=== PATIENT | female | born 2000 | race Caucasian/White ===

== ENCOUNTER 2019-02-01 08:06 | Observation (INO) ==
[2019-02-01] MEDS ORDERED: SODIUM CHLORIDE 0.9% 1000ML 1,000 ML IV ONE (08:42)
[2019-02-01] MEDS ORDERED: METOCLOPRAMIDE HCL INJ 5 MG/ML 2 ML VIAL IV STA (08:42)
[2019-02-01 08:59] LABS: Basophils # (auto) 0.04 K/uL (0-0.2); Basophils % (auto) 0.2 %; Eosinophils # (auto) 0.04 K/uL (0-0.5); Eosinophils % (auto) 0.2 %; Hematocrit (blood only) 39.1 % (37-47); Hemoglobin 13.9 g/dL (12.0-16.0); Immature Granulocytes # (auto) 0.06 K/uL (0.00-0.02); Immature Granulocytes % (auto) 0.3 %; Lymphocytes # (auto) 2.47 K/uL (1.2-3.4); Lymphocytes % (auto) 13.8 %; Mean Corpuscular Hemoglobin 30.3 pg (25-34); Mean Corpuscular Hgb Conc 35.5 g/dL (32-36); Mean Corpuscular Volume 85.4 fL (80-100); Mean Platelet Volume 11.2 fL (7.4-10.4); Monocytes # (auto) 1.18 K/uL (0.11-0.59); Monocytes % (auto) 6.6 %; Neutrophils # (auto) 14.09 K/uL (1.4-6.5); Neutrophils % (auto) 78.9 %; Platelet Count 318 K/uL (130-400); RDW Coefficient of Variation 13.6 % (11.5-14.5); RDW Standard Deviation 42.3 fL (36.4-46.3); Red Blood Count 4.58 M/uL (4.2-5.4); White Blood Count 17.88 K/uL (4.8-10.8)
[2019-02-01 09:06] LABS: Albumin Level 4.4 gm/dl (3.4-5.0); BUN Creatinine Ratio 10.1 (10-20); Calcium 9.6 mg/dl (8.5-10.1); Creatinine Clr Calc Pharmacy 82.3 ml/min; Est GFR (African American) 108.1; Est GFR (Non-African American) 93.3; Potassium 3.4 mmol/L (3.5-5.1)
[2019-02-01 09:09] LABS: Albumin Globulin Ratio 1.2 (0.9-2); Bilirubin,Total 0.6 mg/dl (0.2-1); Globulin 3.6 gm/dl (2.5-4.0)
[2019-02-01] MEDS ORDERED: DiphenhydrAMINE HCL 50 MG/ML VIAL IV STA ×2 (10:03→13:02)
[2019-02-01] MEDS ORDERED: ONDANSETRON INJ 2 MG/ML 2 ML VIAL IV STA (10:03)
[2019-02-01] MEDS ORDERED: ACETAMINOPHEN 1,000 MG/100 ML VIAL IV STA (10:06)
[2019-02-01 11:22] LABS: Appearance Urine Clear (Clear); Bilirubin Urine Negative (Negative); Blood Urine Negative (Negative); Color Urine Yellow; Glucose Urine UA Negative (Negative); Leukocyte Esterase Urine Negative (Negative); Nitrite Urine Negative (Negative); Protein Urine Negative (Negative); Specific Gravity Urine 1.021 (1.000-1.030); Urobilinogen Urine Negative (Negative)
--- NOTE | 2019-02-01 11:27 | Ultrasound Report ---
US OB <= 14 weeks fetus, US OB transvaginal CLINICAL HISTORY: 18 years-old Female presenting with Abd pain, N/V, elev WBC, last menstrual period 12/30/2018, 4 weeks 5 days , left lower quadrant pain. TECHNIQUE: Real-time grayscale and M-mode ultrasound imaging of the pelvis was performed first using a transabdominal probe and subsequently transvaginal for better characterization for a first trimeste r evaluation. Color and spectral Doppler ultrasound imaging of the adnexa was also performed. COMPARISON: CT from 06/13/2018. FINDINGS: TRANSABDOMINAL: Transabdominal imaging was performed for a minimally invasive evaluation and to ensur e visualization of global pelvic findings. Bladder: Normal. Uterus: The endometrial cavity contains a fluid collection near the fundus. This may represent a gest ational sac. Normal echogenicity and echotexture of the myometrium. Uterine size: 7.6 x 3.4 x 4.6 cm. Orientation: Anteverted uterus. Cervix: Grossly closed. Right adnexa: Right ovary: Not visualized. Left adnexa: Left ovary: Not visualized. Other: No large volume free fluid. ENDOVAGINAL: Endovaginal imaging was subsequently performed, which was necessitated by incomplete zoran racterization of the endometrial contents and/or gestational sac contents. Uterus: Gestational sac and yolk sac evident. pole not visualized. size metrics: Gestatio nal sac measures 13 mm corresponding to a gestational age of 5 weeks 3 days and estimated date of del agrelia 10/01/2019. Endometrial thickness: 14 mm. Endometrium: Normal echogenicity and echotexture with t hickening likely relating to a decidual reaction. Orientation: Anteverted retroflexed uterus. Gestati onal sac shape: Normal configuration. Amniotic fluid volume: Normal amniotic fluid volume. Placental implantation: Unable to accurately assess placental implantation secondary to early gestational age. No perigestational fluid to suggest hemorrhage. Cervix: Long and closed. Cervical length: Not measure d. Right adnexa: Right ovary: Normal. Normal color Doppler flow and arterial and venous waveforms within the ovarian parenchyma. Right ovary size: 2.4 x 1.4 x 1.4 cm. Left adnexa: Left ovary: Contains a corpus luteum. Normal color Doppler flow and arterial and venous waveforms within the ovarian parenchyma. Left ovary size: 2.9 x 1.6 x 1.9 cm. Other: Trace free fluid, likely physiologic. IMPRESSION: 1. Normal-appearing gestational sac with an estimated gestational age of 5 weeks 3 days and estimate d date of delivery 10/01/2019. Although a yolk sac is visualized, a pole is not yet visualized li gwendolyn due to the early gestational age. Continued clinical and imaging follow-up recommended. 2. No ovarian torsion. Electronically signed by: Michael Vinson M.D. 02/01/2019 11:26 AM
[2019-02-01 11:39] LABS: Ketones Urine 4+ (Negative)
--- NOTE | 2019-02-01 11:39 | Ultrasound Report ---
US appendix HISTORY: Pain Abd pain, elev WBC, preg COMPARISON: None. FINDINGS: Transabdominal scanning of the right lower quadrant was performed. The appendix was not identified. T here are no fluid collections or masses within the right lower quadrant. IMPRESSION: The appendix was not identified. The above report was generated using voice recognition software. It may contain grammatical, syntax or spelling errors. Electronically signed by: Iker Gustafson M.D. 02/01/2019 11:38 AM
[2019-02-01] MEDS ORDERED: POTASSIUM CHLORIDE / WTR 10 MEQ/100 ML PLCT IV ONE (13:02)
[2019-02-01] MEDS ORDERED: PYRIDOXINE HCL 100 MG in SYRINGE 10 ML IV ONE (14:15)
--- NOTE | 2019-02-01 15:30 | Emergency Department Note ---
History of Present Illness General Chief complaint: Vomiting Stated complaint: NAUSEA, VOMITING,PREG Time Seen by Provider: 02/01/19 08:22 History of Present Illness Maximum Pain Intensity: 7 18-year-old female who presents the emergency department with complaint of significant nausea, vomiting and abdominal pain. The patient reports that she is currently approximately 4-1/2 weeks . The patient reports that this is her first . She reports that the vomiting has been pretty constant since 5:45 AM this morning, but reports that she has had intermittent nausea throughout her entire . The patient had a positive urine test. She was seen at a clinic [place], and has an ultrasound scheduled for 2 weeks. The patient is a University student. She rates her overall discomfort a 7 out of 10. Home Medications Home Medications Medication Instructions Recorded Confirmed Type ondansetron HCl [Zofran] 4 mg PO BID PRN 02/01/19 02/01/19 History Allergies Allergy/AdvReac Type Severity Reaction Status Date / Time No Known Allergies Allergy Unverified 02/01/19 08:41 Past Med/Surg History Medical History No significant past medical history Surgical History No significant past surgical history Social History Preferred Language: Citizen Of [place] Communication Ability: Effective Passenger Car Conductor Required: No Beliefs That Will Affect Care: None Current Living Situation: Significant Other Other Information That Helps Us Care for You: No Feels Safe at Home: Yes Safety Concerns: Feels Safe At This Time Smoking Status: Never smoker Do You Dip or Chew Tobacco: No ; Second Hand Exposure: No ; Tobacco Cessation Education Requested by Patient: No Hx Alcohol Use: No Hx Substance Use: No Review of Systems 10 system review was performed and was negative except for pertinent positives and negatives as indicated in history of present illness Physical Exam Vital Signs Vital Signs - 24 hr 02/01/19 08:08 02/01/19 08:14 02/01/19 11:09 Temperature 36.6 C Temperature Source Oral Oral Sepsis Recent Fever Within 48 Hours No Sepsis New/Unexplained Change in Mental Status No Sepsis Action Taken by Nursing No Action Required Pulse Rate 92 H Pulse Rate [Right Finger] 85 Pulse Rhythm Regular Pulse Strength Normal Respiratory Rate 22 18 Respiratory Effort / Characteristics Non-Labored Spontaneous Respiratory Depth Normal Respiratory Pattern Regular Blood Pressure 114/70 Blood Pressure [Left Arm] 113/65 Blood Pressure Mean 84 Blood Pressure Mean [Left Arm] 81 Blood Pressure Position Sitting Pulse Oximetry 100 99 Oxygen Delivery Method Room Air Room Air 02/01/19 14:55 Temperature Temperature Source Sepsis Recent Fever Within 48 Hours Sepsis New/Unexplained Change in Mental Status Sepsis Action Taken by Nursing Pulse Rate Pulse Rate [Right Finger] Pulse Rhythm Pulse Strength Respiratory Rate 18 Respiratory Effort / Characteristics Respiratory Depth Normal Respiratory Pattern Blood Pressure Blood Pressure [Left Arm] 122/78 Blood Pressure Mean Blood Pressure Mean [Left Arm] 92 Blood Pressure Position Pulse Oximetry 100 Oxygen Delivery Method CONSTITUTIONAL: Healthy and well nourished. Alert and oriented X 3. Patient appears in moderate severe discomfort, holding an emesis bag. HEENT: Normocephalic, atraumatic. Pupils equal, round and reactive. Ears and nares are clear. Mucous membranes are dry without tonsillar hypertrophy or exudates. NECK: Full active range of motion without discomfort. LYMPHATICS: No cervical chain adenopathy. RESPIRATORY: Clear to auscultation bilaterally with no wheezing, crackles, rhonchi or stridor. CARDIOVASCULAR: Regular rate and rhythm with no murmurs, rubs or gallops. GASTROINTESTINAL: Bowel sounds present in all quadrants. Patient has diffuse nonfocal tenderness to palpation of the abdomen. It was difficult to check for McBurney's point or Owen sign because of the discomfort. Negative CVA tenderness. MUSCULOSKELETAL: Full range of motion of all joints without discomfort. INTEGUMENTARY: No rash or other significant dermatologic conditions noted. HEMATOLOGIC: No ecchymosis or petechiae. PSYCHIATRIC: Positive affect. NEUROLOGIC: No focal neurologic deficits noted. Course Patient history and physical exam were performed. Nurse's notes were reviewed. Vital signs were reviewed and were grossly normal. IV access was established, and labs were drawn. The patient was hydrated with a liter normal saline, and administered IV Benadryl, Reglan and Tylenol. Labs were reviewed to show an elevated white count of nearly 18,000 with left shift and bandemia. Potassium is 3.4. Glucose is mildly elevated at 114. LFTs and lipase are normal. Quantitative hCG is 10,565. Hemoglobin and platelets are normal. Urinalysis shows 4+ ketonuria without hematuria or signs of infection. Upon reevaluation, the patient reported that she was still significantly nauseated. She was administered additional IV Zofran, and still did not have any relief after approximately 30 minutes. Pelvic ultrasound shows a single viable intrauterine . The appendix could not be visualized on ultrasound. Upon reevalu ation, the patient still had significant abdominal discomfort and nausea with vomiting. Patient also reports that it felt like she has had to go to the bathroom 3 times since being here to have a bowel movement without success. I discussed the case further with Dr. Belcher, ED attending physician, who recommends administering additional Benadryl and vitamin B6, and administer a K- rider. These orders were placed, and consultation was then made with the [facility] hospitalist service. I spoke with Dr. Barber, who requested that I discussed the case further with BUSINESS SUPPORT MANAGER to see if they would do the admission for nausea management. The case was then discussed with Dr.Brun bird, [facility] Physician [facility] BUSINESS SUPPORT MANAGER, in addition with Dr. Barber who was present during a teleconference call. initially agreed to admit the patient, however discovered that the patient is unassigned, and is not on-call for unassigned patients. The case was then discussed with Dr. Correia, [facility] BUSINESS SUPPORT MANAGER, who evaluated the patient and agrees to admission. Patient told her that she had actually had watery diarrhea the 3 times that she was to the bathroom while in the emergency department. This is most consistent with gastroenteritis. Please see Dr. Correia's dictation for further treatment and final disposition. Administered Medications Discontinued Medications Diphenhydramine HCl (Benadryl) 12.5 mg IV NOW STA Stop: 02/01/19 10:04 Last Admin: 02/01/19 10:27 Dose: 12.5 mg Documented by: [id number] Diphenhydramine HCl (Benadryl) 12.5 mg IV NOW STA Stop: 02/01/19 13:03 Last Admin: 02/01/19 14:42 Dose: 12.5 mg Documented by: [id number] Sodium Chloride (Nss 1000ml) 1,000 mls @ 999 mls/hr IV .Q1H1M ONE Stop: 02/01/19 09:42 Last Infusion: 02/01/19 10:27 Dose: 0 mls/hr Documented by: [id number] Admin: 02/01/19 08:55 Dose: 999 mls/hr Documented by: [id number] Acetaminophen (Ofirmev) 1,000 mg in 100 mls @ 400 mls/hr IV NOW STA Stop: 02/01/19 10:20 Last Infusion: 02/01/19 10:56 Dose: 0 mls/hr Documented by: [id number] Admin: 02/01/19 10:27 Dose: 400 mls/hr Documented by: [id number] Pyridoxine HCl 100 mg/ Syringe 11 mls @ 2.2 mls/min IV 1415 ONE Stop: 02/01/19 14:19 Last Admin: 02/01/19 14:42 Dose: 2.2 mls/min Documented by: [id number] Potassium Chloride (K Jak / Wtr) 10 meq in 100 mls @ 100 mls/hr IV ONE ONE Stop: 02/01/19 14:01 Last Infusion: 02/01/19 15:50 Dose: 0 mls/hr Documented by: [id number] Admin: 02/01/19 14:43 Dose: 100 mls/hr Documented by: [id number] Metoclopramide HCl (Reglan) 10 mg IV NOW STA Stop: 02/01/19 08:43 Last Admin: 02/01/19 08:54 Dose: 10 mg Documented by: [id number] Ondansetron HCl (Zofran) 4 mg IV NOW STA Stop: 02/01/19 10:04 Last Admin: 02/01/19 10:27 Dose: 4 mg Documented by: [id number] Medical Decision Making Medical Records Attestation: I reviewed the patient's medical records. Home Medications Current Medication List: was personally reviewed by me Laboratory Data Attestation: I reviewed the patient's lab results. Result diagrams: 02/01/19 08:19 02/01/19 08:19 Lab Results 02/01/19 02/01/19 02/01/19 Range/Units 08:19 08:19 08:19 WBC 17.88 H (4.8-10.8) K/uL RBC 4.58 (4.2-5.4) M/uL Hgb 13.9 (12.0-16.0) g/dL Hct 39.1 (37-47) % MCV 85.4 (80-100) fL MCH 30.3 (25-34) pg MCHC 35.5 (32-36) g/dL RDW Std Deviation 42.3 (36.4-46.3) fL RDW Coeff of Daniel 13.6 (11.5-14.5) % Plt Count 318 (130-400) K/uL MPV 11.2 H (7.4-10.4) fL Immature Gran % (Auto) 0.3 % Neut % (Auto) 78.9 % Lymph % (Auto) 13.8 % [place] % (Auto) 6.6 % Eos % (Auto) 0.2 % Baso % (Auto) 0.2 % Immature Gran # (Auto) 0.06 H (0.00-0.02) K/uL Neut # (Auto) 14.09 H (1.4-6.5) K/uL Lymph # (Auto) 2.47 (1.2-3.4) K/uL [place] # (Auto) 1.18 H (0.11-0.59) K/uL Eos # (Auto) 0.04 (0-0.5) K/uL Baso # (Auto) 0.04 (0-0.2) K/uL Sodium 136 (136-145) mmol/L Potassium 3.4 L (3.5-5.1) mmol/L Chloride 105 (98-107) mmol/L Carbon Dioxide 18 L (21-32) mmol/L Anion Gap 13.0 H (3-11) BUN 9 (7-18) mg/dl Creatinine 0.89 (0.6-1.2) mg/dl Est Cr Clr Drug Dosing 82.3 ml/min Est GFR ( Amer) 108.1 Est GFR (Non-Af Amer) 93.3 BUN/Creatinine Ratio 10.1 (10-20) Glucose 114 H (70-99) mg/dl Calcium 9.6 (8.5-10.1) mg/dl Total Bilirubin 0.6 (0.2-1) mg/dl AST 15 (15-37) U/L ALT 19 (12-78) U/L Alkaline Phosphatase 74 (45-117) U/L Total Protein 8.0 (6.4-8.2) gm/dl Albumin 4.4 (3.4-5.0) gm/dl Globulin 3.6 (2.5-4.0) gm/dl Albumin/Globulin Ratio 1.2 (0.9-2) Lipase 50 L (73-393) U/L HCG, Quant 15944 mIU/ml Urine Color Urine Appearance (Clear) Urine pH (4.5-7.5) Ur Specific Viola (1.000-1.030) Urine Protein (Negative) Urine Glucose (UA) (Negative) Urine Ketones (Negative) Urine Blood (Negative) Urine Nitrite (Negative) Urine Bilirubin (Negative) Urine Urobilinogen (Negative) Ur Leukocyte Esterase (Negative) 02/01/19 Range/Units 11:05 WBC (4.8-10.8) K/uL RBC (4.2-5.4) M/uL Hgb (12.0-16.0) g/dL Hct (37-47) % MCV (80-100) fL MCH (25-34) pg MCHC (32-36) g/dL RDW Std Deviation (36.4-46.3) fL RDW Coeff of Daniel (11.5-14.5) % Plt Count (130-400) K/uL MPV (7.4-10.4) fL Immature Gran % (Auto) % Neut % (Auto) % Lymph % (Auto) % [place] % (Auto) % Eos % (Auto) % Baso % (Auto) % Immature Gran # (Auto) (0.00-0.02) K/uL Neut # (Auto) (1.4-6.5) K/uL Lymph # (Auto) (1.2-3.4) K/uL [place] # (Auto) (0.11-0.59) K/uL Eos # (Auto) (0-0.5) K/uL Baso # (Auto) (0-0.2) K/uL Sodium (136-145) mmol/L Potassium (3.5-5.1) mmol/L Chloride (98-107) mmol/L Carbon Dioxide (21-32) mmol/L Anion Gap (3-11) BUN (7-18) mg/dl Creatinine (0.6-1.2) mg/dl Est Cr Clr Drug Dosing ml/min Est GFR ( Amer) Est GFR (Non-Af Amer) BUN/Creatinine Ratio (10-20) Glucose (70-99) mg/dl Calcium (8.5-10.1) mg/dl Total Bilirubin (0.2-1) mg/dl AST (15-37) U/L ALT (12-78) U/L Alkaline Phosphatase (45-117) U/L Total Protein (6.4-8.2) gm/dl Albumin (3.4-5.0) gm/dl Globulin (2.5-4.0) gm/dl Albumin/Globulin Ratio (0.9-2) Lipase (73-393) U/L HCG, Quant mIU/ml Urine Color Yellow Urine Appearance Clear (Clear) Urine pH 7.0 (4.5-7.5) Ur Specific Viola 1.021 (1.000-1.030) Urine Protein Negative (Negative) Urine Glucose (UA) Negative (Negative) Urine Ketones 4+ H (Negative) Urine Blood Negative (Negative) Urine Nitrite Negative (Negative) Urine Bilirubin Negative (Negative) Urine Urobilinogen Negative (Negative) Ur Leukocyte Esterase Negative (Negative) Imaging Data Attestation: I personally reviewed and interpreted this imaging study as follows: My Impression: Pelvic ultrasound shows a single intrauterine , with additional findings as discussed in the radiologist report. The appendix could not be visualized with ultrasound. Radiologist's Impression: US OB <= 14 weeks fetus, US OB transvaginal CLINICAL HISTORY: 18 years-old Female presenting with Abd pain, N/V, elev WBC, last menstrual period 12/30/2018, 4 weeks 5 days , left lower quadrant pain. TECHNIQUE: Real-time grayscale and M-mode ultrasound imaging of the pelvis was performed first using a transabdominal probe and subsequently transvaginal for better characterization for a first trimester evaluation. Color and spectral Doppler ultrasound imaging of the adnexa was also performed. COMPARISON: CT from 06/13/2018. FINDINGS: TRANSABDOMINAL: Transabdominal imaging was performed for a minimally invasive evaluation and to ensure visualization of global pelvic findings. Bladder: Normal. Uterus: The endometrial cavity contains a fluid collection near the fundus. This may represent a gestational sac. Normal echogenicity and echotexture of the myometrium. Uterine size: 7.6 x 3.4 x 4.6 cm. Orientation: Anteverted uterus. Cervix: Grossly closed. Right adnexa: Right ovary: Not visualized. Left adnexa: Left ovary: Not visualized. Other: No large volume free fluid. ENDOVAGINAL: Endovaginal imaging was subsequently performed, which was necessitated by incomplete characterization of the endometrial contents and/or gestational sac contents. Uterus: Gestational sac and yolk sac evident. pole not visualized. size metrics: Gestational sac measures 13 mm corresponding to a gestational age of 5 weeks 3 days and estimated date of delivery 10/01/2019. Endometrial thickness: 14 mm. Endometrium: Normal echogenicity and echotexture with thickening likely relating to a decidual reaction. Orientation: Anteverted retroflexed uterus. Gestational sac shape: Normal configuration. Amniotic fluid volume: Normal amniotic fluid volume. Placental implantation: Unable to accurately assess placental implantation secondary to early gestational age. No perigestational fluid to suggest hemorrhage. Cervix: Long and closed. Cervical length: Not measured. Right adnexa: Right ovary: Normal. Normal color Doppler flow and arterial and venous waveforms within the ovarian parenchyma. Right ovary size: 2.4 x 1.4 x 1.4 cm. Left adnexa: Left ovary: Contains a corpus luteum. Normal color Doppler flow and arterial and venous waveforms within the ovarian parenchyma. Left ovary size: 2.9 x 1.6 x 1.9 cm. Other: Trace free fluid, likely physiologic. IMPRESSION: 1. Normal-appearing gestational sac with an estimated gestational age of 5 weeks 3 days and estimated date of delivery 10/01/2019. Although a yolk sac is visualized, a pole is not yet visualized likely due to the early gestati onal age. Continued clinical and imaging follow-up recommended. 2. No ovarian torsion. US appendix HISTORY: Pain Abd pain, elev WBC, preg COMPARISON: None. FINDINGS: Transabdominal scanning of the right lower quadrant was performed. The appendix was not identified. There are no fluid collections or masses within the right lo wer quadrant. IMPRESSION: The appendix was not identified. Blood Pressure Blood Pressure Findings: Normal blood pressure MDM Narrative Patient presents to the emergency department for evaluation of intractable nausea and vomiting, and unbeknownst to me, was having watery diarrhea while in the emergency department. This is most consistent with a viral gastroenteritis. Pelvic ultrasound does show an intrauterine . The patient has mild hypokalemia as well. She is hemodynamically stable. Urinalysis is not consistent with infection. She does not have CVA tenderness to suggest pyelone phritis. I do not suspect acute cardiopulmonary etiologies. Impression & Plan Intractable nausea and vomiting, Gastroenteritis, Intrauterine , Acute hypokalemia Discharge Plan Visit Data Chief Complaint: Vomiting Stated Complaint: NAUSEA, VOMITING,PREG ED Provider: John Belcher ED Midlevel Provider: Timi Espinal Discharge Problem: Intractable nausea and vomiting, Gastroenteritis, Intrauterine , Acute hypokalemia Forms Stand Alone Forms: My [facility] 3dim Prescriptions Prescriptions: No Action ondansetron HCl [Zofran] 4 mg tablet 4 mg PO BID PRN (Reason: Nausea And Vomiting) RF: 0
[2019-02-01] MEDS ORDERED: ONDANSETRON INJ 2 MG/ML 2 ML VIAL IV PRN (15:55)
[2019-02-01] MEDS ORDERED: PROMETHAZINE HCL 25 MG in SODIUM CHLORIDE 0.9% 50 ML IV PRN (16:00)
[2019-02-01] MEDS ORDERED: ACETAMINOPHEN 65 ML IV PRN (16:00)
[2019-02-01] MEDS ORDERED: MoRPHine SULFATE 2 MG/ML CARP IV PRN (16:16)
--- NOTE | 2019-02-01 16:16 | OB/GYN Consultation ---
Date of Consultation February 01, 2019 Assessment & Plan (1) Nausea/vomiting in : Patient is a 18 yo at 5 wks with N&V, diarrhea worsened today, 5 weeks GS, IUP, no pole due to early No s/s of ectopic regnancy h/o colitis with similar symptoms Most likely Viral G. enteritis Unlikely Plan to admit for pain control, monitor, consult Hospitalist for recommendations Repeat labs in am All questions were answered (2) Diarrhea during : (3) Abdominal pain affecting : History of Present Illness Reason for Consultation: N&V and abdominal pain History of Present Illness Patient is a 18-year-old female with LMP of 10/4, 5 weeks , who presents the emergency department with complaint of significant nausea, vomiting and abdominal pain started this morning. The patient reports that this is her first . She reports that the vomiting has been pretty constant since 5:45 AM this morning, but reports that she has had intermittent nausea throughout her entire since she found out on 01/28. when The patient had a positive urine test. Her nausea was mild, was able to eat crackers and drink until this morning when she woke up with N&V. She vomited 10-15 times today and pain also started today. It feels sore in her abdomen all over. She also reports diarrhea x4 since she got here. Brown to green. She has h/o colitis few months ago when she presented to ER with similar symptoms but was not . She was seen at a clinic [place], and has an ultrasound scheduled for 2 weeks. The patient is a University student. She rates her overall discomfort a 4 out of 10. She desires something for pain and help to sleep. Denies any other medical problems. Allergies Allergy/AdvReac Type Severity Reaction Status Date / Time No Known Allergies Allergy Unverified 02/01/19 08:41 Home Medications Home Medications Medication Instructions Recorded Confirmed Type ondansetron HCl [Zofran] 4 mg PO BID PRN 02/01/19 02/01/19 History Patient History Medical History No significant past medical history Surgical History No significant past surgical history Social History Preferred Language: Italian Communication Ability: Effective Wagon Driller Required: No Beliefs That Will Affect Care: None Current Living Situation: Significant Other Other Information That Helps Us Care for You: No Feels Safe at Home: Yes Safety Concerns: Feels Safe At This Time Smoking Status: Never smoker Do You Dip or Chew Tobacco: No ; Second Hand Exposure: No ; Tobacco Cessation Education Requested by Patient: No Hx Alcohol Use: No Hx Substance Use: No Review of Systems Review of Systems: All systems reviewed & are unremarkable except as noted in HPI & below Physical Exam Constitutional: WD/WN, vitals as above well developed, + ill appearing and + in distress (mild to moderate distress) Gastrointestinal (Abdomen): Inspection/Auscultation: abdomen normal to inspection and normal bowel sounds Percussion/Palpation: + abdomen tender, + guarding (none), + abdomen rigid (none) and abdomen soft Abd: soft, ND, diffuse tenderness in all quadrants, no rebund Genitourinary: Deferred Results & Data Vital Signs (Past 12 Hours) Vital Signs Temp Pulse Pulse Resp BP BP Pulse Ox 02/01/19 14:55 18 122/78 100 02/01/19 11:09 85 18 113/65 99 02/01/19 08:08 36.6 C 92 H 22 114/70 100 Laboratory Results Lab Results 02/01/19 02/01/19 02/01/19 Range/Units 08:19 08:19 08:19 WBC 17.88 H (4.8-10.8) K/uL RBC 4.58 (4.2-5.4) M/uL Hgb 13.9 (12.0-16.0) g/dL Hct 39.1 (37-47) % MCV 85.4 (80-100) fL MCH 30.3 (25-34) pg MCHC 35.5 (32-36) g/dL RDW Std Deviation 42.3 (36.4-46.3) fL RDW Coeff of Daniel 13.6 (11.5-14.5) % Plt Count 318 (130-400) K/uL MPV 11.2 H (7.4-10.4) fL Immature Gran % (Auto) 0.3 % Neut % (Auto) 78.9 % Lymph % (Auto) 13.8 % [place] % (Auto) 6.6 % Eos % (Auto) 0.2 % Baso % (Auto) 0.2 % Immature Gran # (Auto) 0.06 H (0.00-0.02) K/uL Neut # (Auto) 14.09 H (1.4-6.5) K/uL Lymph # (Auto) 2.47 (1.2-3.4) K/uL [place] # (Auto) 1.18 H (0.11-0.59) K/uL Eos # (Auto) 0.04 (0-0.5) K/uL Baso # (Auto) 0.04 (0-0.2) K/uL Sodium 136 (136-145) mmol/L Potassium 3.4 L (3.5-5.1) mmol/L Chloride 105 (98-107) mmol/L Carbon Dioxide 18 L (21-32) mmol/L Anion Gap 13.0 H (3-11) BUN 9 (7-18) mg/dl Creatinine 0.89 (0.6-1.2) mg/dl Est Cr Clr Drug Dosing 82.3 ml/min Est GFR ( Amer) 108.1 Est GFR (Non-Af Amer) 93.3 BUN/Creatinine Ratio 10.1 (10-20) Glucose 114 H (70-99) mg/dl Calcium 9.6 (8.5-10.1) mg/dl Total Bilirubin 0.6 (0.2-1) mg/dl AST 15 (15-37) U/L ALT 19 (12-78) U/L Alkaline Phosphatase 74 (45-117) U/L Total Protein 8.0 (6.4-8.2) gm/dl Albumin 4.4 (3.4-5.0) gm/dl Globulin 3.6 (2.5-4.0) gm/dl Albumin/Globulin Ratio 1.2 (0.9-2) Lipase 50 L (73-393) U/L HCG, Quant 36844 mIU/ml Urine Color Urine Appearance (Clear) Urine pH (4.5-7.5) Ur Specific [place] (1.000-1.030) Urine Protein (Negative) Urine Glucose (UA) (Negative) Urine Ketones (Negative) Urine Blood (Negative) Urine Nitrite (Negative) Urine Bilirubin (Negative) Urine Urobilinogen (Negative) Ur Leukocyte Esterase (Negative) 02/01/19 Range/Units 11:05 WBC (4.8-10.8) K/uL RBC (4.2-5.4) M/uL Hgb (12.0-16.0) g/dL Hct (37-47) % MCV (80-100) fL MCH (25-34) pg MCHC (32-36) g/dL RDW Std Deviation (36.4-46.3) fL RDW Coeff of Daniel (11.5-14.5) % Plt Count (130-400) K/uL MPV (7.4-10.4) fL Immature Gran % (Auto) % Neut % (Auto) % Lymph % (Auto) % [place] % (Auto) % Eos % (Auto) % Baso % (Auto) % Immature Gran # (Auto) (0.00-0.02) K/uL Neut # (Auto) (1.4-6.5) K/uL Lymph # (Auto) (1.2-3.4) K/uL [place] # (Auto) (0.11-0.59) K/uL Eos # (Auto) (0-0.5) K/uL Baso # (Auto) (0-0.2) K/uL Sodium (136-145) mmol/L Potassium (3.5-5.1) mmol/L Chloride (98-107) mmol/L Carbon Dioxide (21-32) mmol/L Anion Gap (3-11) BUN (7-18) mg/dl Creatinine (0.6-1.2) mg/dl Est Cr Clr Drug Dosing ml/min Est GFR ( Amer) Est GFR (Non-Af Amer) BUN/Creatinine Ratio (10-20) Glucose (70-99) mg/dl Calcium (8.5-10.1) mg/dl Total Bilirubin (0.2-1) mg/dl AST (15-37) U/L ALT (12-78) U/L Alkaline Phosphatase (45-117) U/L Total Protein (6.4-8.2) gm/dl Albumin (3.4-5.0) gm/dl Globulin (2.5-4.0) gm/dl Albumin/Globulin Ratio (0.9-2) Lipase (73-393) U/L HCG, Quant mIU/ml Urine Color Yellow Urine Appearance Clear (Clear) Urine pH 7.0 (4.5-7.5) Ur Specific [place] 1.021 (1.000-1.030) Urine Protein Negative (Negative) Urine Glucose (UA) Negative (Negative) Urine Ketones 4+ H (Negative) Urine Blood Negative (Negative) Urine Nitrite Negative (Negative) Urine Bilirubin Negative (Negative) Urine Urobilinogen Negative (Negative) Ur Leukocyte Esterase Negative (Negative) Diagnostic Findings US: GS+, Yolk sac+, no pole
--- NOTE | 2019-02-01 17:27 | Hospitalist Consultation ---
Date of Consultation February 01, 2019 Assessment & Plan (1) Intractable nausea and vomiting: Ddx includes gastroenteritis vs. -related. Patient has had recurrent episodes of "colitis" resulting in nausea and vomiting without a definitive diagnosis. She discusses that someone at some point referenced IBS for her, but it doesn't seem this diagnosis has ever been official. She denies ever having a colonoscopy or being told she has/had IBD (Crohn's or ulcerative colitis). - Treat per primary team for nausea and vomiting. - Ordered C. diff, stool culture, and stool WBCs to investigate an infectious cause of her nausea, vomiting, and diarrhea. If it persists, would consider GI consultation. - If the above testing is negative and her symptoms improve, I believe she can be discharged with outpatient Ob, PCP, and GI follow up (2) Colitis: From the patient's report, she has seen several providers without a definitive diagnosis. She seems to have spells where she will have severe nausea and vomiting, then go months without any symptoms. - Outpatient follow up with her PCP and GI History of Present Illness History of Present Illness Very pleasant 18-year-old female with a history of undifferentiated colitis (possibly IBS) who presents with intractable nausea and vomiting and diarrhea. Per the patient, she has had recurrent episodes of nausea and emesis without a solid etiology found. The most recent prior episode was in May of this year when she will present to the emergency department, received IV fluids and IV antiemetics, and was discharged home. She reports she has had some prior stool testing; however, has never had an EGD or colonoscopy for these issues. She denies any diagnosis of celiac disease or IBD. She notes that she has had worsening nausea and vomiting since becoming . Usually however she is able to tolerate the symptoms and continue taking adequate oral intake. However this morning she had intractable nausea and vomiting and was unable to keep her Zofran down, hence her arrival at the emergency department. She also notes that this morning she had some mild, hard stools with multiple BMs gradually turning into looser, watery stool. She denies any blood or mucus in the stool or any black, tarry stools. In the ED, her WBC was noted to be 18. She had an ultrasound showing intrauterine fetus at approximately 5 weeks gestation. No ovarian pathology noted. Appendiceal ultrasound was attempted; however, they cannot visualize the appendix on the scan. At present she is in minimal pain. She has some mild tenderness along the left side of the abdomen, but her abdomen is soft without rebound or guarding. She notes no pain in her right lower quadrant right upper quadrant. At present her nausea is under control, though she did have an episode of emesis approximately 15 minutes ago she reports. Allergies Allergy/AdvReac Type Severity Reaction Status Date / Time No Known Allergies Allergy Unverified 02/01/19 08:41 Home Medications Home Medications Medication Instructions Recorded Confirmed Type ondansetron HCl [Zofran] 4 mg PO BID PRN 02/01/19 02/01/19 History Patient History Medical History Colitis Unspecified, denies hx of IBD or celiac disease. No significant past medical history Surgical History No significant past surgical history Social History Preferred Language: Sami Communication Ability: Effective Personnel Adviser Required: No Beliefs That Will Affect Care: None Current Living Situation: Significant Other Other Information That Helps Us Care for You: No Feels Safe at Home: Yes Safety Concerns: Feels Safe At This Time Smoking Status: Never smoker Do You Dip or Chew Tobacco: No ; Second Hand Exposure: No ; Tobacco Cessation Education Requested by Patient: No Hx Alcohol Use: No Hx Substance Use: No Review of Systems Review of Systems: All systems reviewed & are unremarkable except as noted in HPI & below Physical Exam Constitutional: WD/WN, vitals as above Eyes: EOM intact bilaterally; no conjunctival abnormality ENMT: external ear and nose normal, oropharynx normal Neck: trachea midline, no thyromegaly normal visual inspection Respiratory: normal respiratory effort, lungs clear to auscultation no respiratory distress Cardiovascular: Rate/Rhythm: regular rhythm and + tachycardic Heart Sounds: normal S1 and normal S2; no murmur Vessels: no JVD Gastrointestinal (Abdomen): Inspection/Auscultation: abdomen normal to inspection and normal bowel sounds; abdomen not distended and no abdominal edema Percussion/Palpation: + abdomen tender (Left-sided) and abdomen soft; no guarding, abdomen not rigid, no pulsatile mass and no ascites Musculoskeletal: no cyanosis or clubbing, extremities motor strength 5/5 Skin: no rashes, warm and dry Neurologic: moves all extremities and awake Psychiatric: Orientation: alert, oriented to person and cooperative Results & Data Vital Signs (Past 12 Hours) Vital Signs Temp Pulse Pulse Resp BP BP Pulse Ox 02/01/19 16:00 91 H 24 119/76 100 02/01/19 15:30 88 16 113/66 100 02/01/19 15:00 99 H 16 116/74 100 02/01/19 14:55 18 122/78 100 02/01/19 11:09 85 18 113/65 99 02/01/19 08:08 36.6 C 92 H 22 114/70 100 PG Care Time/CCT Total # of Minutes Spent Total Time Spent with Patient: Total time spent is greater than 50% in coordination of care (as documented) at patient's floor/unit and/or counseling patient:
[2019-02-01] MEDS: LACTATED RINGER'S 1,000 ML IV SCH (18:06)
[2019-02-01] MEDS ORDERED: MULTI-VITAMIN INFUSION 10 ML, THIAMINE HCL 100 MG, FOLIC ACID 1 MG in SODIUM CHLORIDE 0... IV ONE (18:15)
[2019-02-02] MEDS: LACTATED RINGER'S 1,000 ML IV SCH ×2 (01:48→08:20)
[2019-02-02 06:27] LABS: Basophils # (auto) 0.03 K/uL (0-0.2); Basophils % (auto) 0.2 %; Eosinophils # (auto) 0.03 K/uL (0-0.5); Eosinophils % (auto) 0.2 %; Hematocrit (blood only) 33.6 % (37-47); Hemoglobin 11.5 g/dL (12.0-16.0); Immature Granulocytes # (auto) 0.03 K/uL (0.00-0.02); Immature Granulocytes % (auto) 0.2 %; Lymphocytes # (auto) 3.67 K/uL (1.2-3.4); Lymphocytes % (auto) 29.9 %; Mean Corpuscular Hemoglobin 29.3 pg (25-34); Mean Corpuscular Hgb Conc 34.2 g/dL (32-36); Mean Corpuscular Volume 85.7 fL (80-100); Mean Platelet Volume 10.7 fL (7.4-10.4); Monocytes # (auto) 1.42 K/uL (0.11-0.59); Monocytes % (auto) 11.6 %; Neutrophils # (auto) 7.08 K/uL (1.4-6.5); Neutrophils % (auto) 57.9 %; Platelet Count 233 K/uL (130-400); RDW Standard Deviation 43.4 fL (36.4-46.3); Red Blood Count 3.92 M/uL (4.2-5.4); White Blood Count 12.26 K/uL (4.8-10.8)
[2019-02-02 06:59] LABS: Alanine Aminotransferase 16 U/L (12-78); Albumin Globulin Ratio 1.2 (0.9-2); Albumin Level 3.3 gm/dl (3.4-5.0); Alkaline Phosphatase 56 U/L (45-117); Aspartate Aminotransferase 11 U/L (15-37); BUN Creatinine Ratio 8.7 (10-20); Bilirubin,Total 0.6 mg/dl (0.2-1); Blood Urea Nitrogen 5 mg/dl (7-18); Calcium 8.1 mg/dl (8.5-10.1); Carbon Dioxide 23 mmol/L (21-32); Chloride 109 mmol/L (98-107); Creatinine Clr Calc Pharmacy 135.6 ml/min; Est GFR (African American) > 150.0; Est GFR (Non-African American) 135.8; Globulin 2.8 gm/dl (2.5-4.0); Glucose 83 mg/dl (70-99); Potassium 3.5 mmol/L (3.5-5.1); Sodium 137 mmol/L (136-145); Total Protein 6.1 gm/dl (6.4-8.2)
--- NOTE | 2019-02-02 11:46 | Obstetrical Progress Note ---
Date of Service February 02, 2019 Subjective patient is doing well no more pain or nausea Physical Exam Constitutional: WD/WN, vitals as above comfortable abdomen soft non- tender Results & Data Vital Signs (Past 12 Hours) Vital Signs Temp Pulse Resp BP Pulse Ox 02/02/19 11:08 37 C 68 18 102/53 L 02/02/19 08:05 36.8 C 87 18 101/68 98 02/02/19 04:45 37.0 C 84 17 103/53 L 98 02/02/19 00:27 36.9 C 75 16 103/54 L 97
--- NOTE | 2019-02-02 12:52 | Hospitalist Progress Note ---
Date of Service February 02, 2019 Assessment & Plan (1) Intrauterine : - at 5 weeks. - Follow with OB. (2) Intractable nausea and vomiting: - Possibly related to vs. viral gastroenteritis; symptoms are now resolving. - Does report previous episodes of colitis -- recommend follow up with GI as outpatient, nurse navigator will schedule this appointment. - LR at 150 cc/h; is not dehydrated per lab work review. - Zofran and Compazine prn N/V. (3) Colitis: - C. diff is pending, has not had a BM during this admission. - Recommend f/u with GI to evaluate for IBD. Dispo: Pt. is medically stable, will sign off. Nurse navigator will arrange appt with outpatient GI. Please call with any questions. Supervising Physician Co-Signing Physician Notes PA Supervision Note: I did not personally see or examine the patient today, but I verified all lua points of ETHAN Gatica's assessment and plan with the following exceptions/additions: Pt was discharged before I could see her. Was improved, tolerating po, no further N/V/D, abd pain as per report. Of note on labs, HCG quant falling by almost 1000 mIU/mL today and should be rising. May be margin of error on lab--> follow up as outpt and may need serial HCGs-defer to OB -stable for dc to home Subjective Pt. reports nausea/vomiting is improved. Has not had diarrhea since admission. Is tolerating PO intake. Review of Systems Review of Systems: All systems reviewed & are unremarkable except as noted in HPI & below Constitutional: no fever, no chills, no fatigue, no weakness and no anorexia Respiratory: no cough, no dyspnea, no dyspnea on exertion and no wheezing Cardiovascular: no chest pain, no palpitations and no edema Gastrointestinal: no abdominal pain, no nausea, no vomiting and no constipation Genitourinary: no difficulty urinating Musculoskeletal: no back pain and no joint pain Physical Exam Physical Exam: General: Resting comfortably HEENT: NC/AT; PERRLA with EOMI; [place] conjunctiva, MMM. No erythema of posterior pharynx Neck: Supple and nontender Cardiac: RRR Lungs: CTA bilaterally Abdomen: Bowel normoactive X 4; Nontender to palpation Extremities: Warm. No edema present Neuro: No focal weakness Skin: No rash Results & Data Vital Signs (Past 12 Hours) Vital Signs Temp Pulse Resp BP Pulse Ox 02/02/19 12:27 37 C 68 18 102/53 L 98 02/02/19 11:08 37 C 68 18 102/53 L 02/02/19 08:05 36.8 C 87 18 101/68 98 02/02/19 04:45 37.0 C 84 17 103/53 L 98 Laboratory Results 02/02/19 02/02/19 02/02/19 Range/Units 05:56 05:56 05:56 WBC 12.26 H (4.8-10.8) K/uL RBC 3.92 L (4.2-5.4) M/uL Hgb 11.5 L (12.0-16.0) g/dL Hct 33.6 L (37-47) % MCV 85.7 (80-100) fL MCH 29.3 (25-34) pg MCHC 34.2 (32-36) g/dL RDW Std Deviation 43.4 (36.4-46.3) fL RDW Coeff of Daniel 14.0 (11.5-14.5) % Plt Count 233 (130-400) K/uL MPV 10.7 H (7.4-10.4) fL Immature Gran % (Auto) 0.2 % Neut % (Auto) 57.9 % Lymph % (Auto) 29.9 % [place] % (Auto) 11.6 % Eos % (Auto) 0.2 % Baso % (Auto) 0.2 % Immature Gran # (Auto) 0.03 H (0.00-0.02) K/uL Neut # (Auto) 7.08 H (1.4-6.5) K/uL Lymph # (Auto) 3.67 H (1.2-3.4) K/uL [place] # (Auto) 1.42 H (0.11-0.59) K/uL Eos # (Auto) 0.03 (0-0.5) K/uL Baso # (Auto) 0.03 (0-0.2) K/uL Sodium 137 (136-145) mmol/L Potassium 3.5 (3.5-5.1) mmol/L Chloride 109 H (98-107) mmol/L Carbon Dioxide 23 (21-32) mmol/L Anion Gap 5.0 (3-11) BUN 5 L (7-18) mg/dl Creatinine 0.54 L D (0.6-1.2) mg/dl Est Cr Clr Drug Dosing 135.6 ml/min Est GFR ( Amer) > 150.0 Est GFR (Non-Af Amer) 135.8 BUN/Creatinine Ratio 8.7 L (10-20) Glucose 83 (70-99) mg/dl POC Glucose (70-99) Calcium 8.1 L D (8.5-10.1) mg/dl Total Bilirubin 0.6 (0.2-1) mg/dl AST 11 L (15-37) U/L ALT 16 (12-78) U/L Alkaline Phosphatase 56 (45-117) U/L Total Protein 6.1 L D (6.4-8.2) gm/dl Albumin 3.3 L (3.4-5.0) gm/dl Globulin 2.8 (2.5-4.0) gm/dl Albumin/Globulin Ratio 1.2 (0.9-2) HCG, Quant 9628 mIU/ml 02/01/19 Range/Units 18:38 WBC (4.8-10.8) K/uL RBC (4.2-5.4) M/uL Hgb (12.0-16.0) g/dL Hct (37-47) % MCV (80-100) fL MCH (25-34) pg MCHC (32-36) g/dL RDW Std Deviation (36.4-46.3) fL RDW Coeff of Daniel (11.5-14.5) % Plt Count (130-400) K/uL MPV (7.4-10.4) fL Immature Gran % (Auto) % Neut % (Auto) % Lymph % (Auto) % [place] % (Auto) % Eos % (Auto) % Baso % (Auto) % Immature Gran # (Auto) (0.00-0.02) K/uL Neut # (Auto) (1.4-6.5) K/uL Lymph # (Auto) (1.2-3.4) K/uL [place] # (Auto) (0.11-0.59) K/uL Eos # (Auto) (0-0.5) K/uL Baso # (Auto) (0-0.2) K/uL Sodium (136-145) mmol/L Potassium (3.5-5.1) mmol/L Chloride (98-107) mmol/L Carbon Dioxide (21-32) mmol/L Anion Gap (3-11) BUN (7-18) mg/dl Creatinine (0.6-1.2) mg/dl Est Cr Clr Drug Dosing ml/min Est GFR ( Amer) Est GFR (Non-Af Amer) BUN/Creatinine Ratio (10-20) Glucose (70-99) mg/dl POC Glucose 102 H (70-99) Calcium (8.5-10.1) mg/dl Total Bilirubin (0.2-1) mg/dl AST (15-37) U/L ALT (12-78) U/L Alkaline Phosphatase (45-117) U/L Total Protein (6.4-8.2) gm/dl Albumin (3.4-5.0) gm/dl Globulin (2.5-4.0) gm/dl Albumin/Globulin Ratio (0.9-2) HCG, Quant mIU/ml PG Care Time/CCT Total # of Minutes Spent Total Time Spent with Patient: Total time spent is greater than 50% in coordination of care (as documented) at patient's floor/unit and/or counseling patient:
--- NOTE | 2019-02-15 10:03 | Discharge Summary ---
REASON FOR ADMISSION: Nausea, vomiting and . HISTORY OF PRESENT ILLNESS: The patient is a 18-year-old G1, P0, 5 weeks with nausea, vomiting and diarrhea, worsening today. She has an intrauterine with ultrasound diagnoses. No pole early in . No signs and symptoms of ectopic . The patient probably has either early hyperemesis or gastroenteritis. She was started on IV hydration. She was given Zofran and feeling better and she was stable, tolerating diet. She was discharged home in stable condition. Home going instructions were given. Follow up will be in the office in 4 weeks. Regular diet on discharge.
== END 2019-02-02 13:50 | disposition home or self-care (01) ==
LOC: 4N 08:06 → ED 08:06 → 4N 17:52